=== PATIENT | female | born 1980 | race Asian ===

== ENCOUNTER 2019-03-10 18:14 | Inpatient (IN) | payer MEDICAID, OTHER ==
[2019-03-10] MEDS: SOD CHLORIDE 0.9% 1,000 ML IV (20:47)
[2019-03-10] MEDS: METHYLPREDNISOLONE 125 MG INJ IV (20:47)
[2019-03-10] MEDS: CEFTRIAXONE 1 GM/50 ML (PMX) 50 ML IVPB (20:50)
[2019-03-10 21:01] LABS: ADD MAN DIFF? NO
[2019-03-10] MEDS: IPRATROPIUM (NEB) 0.5 MG/2.5 ML AMP INH (21:01)
[2019-03-10] MEDS: ALBUTEROL 0.083% (NEB) 2.5 MG/3 ML AMP HHN (21:02)
[2019-03-10 21:06] LABS: BASOPHILS % 0.2 % (0.0-2.0); EOSINOPHILS # 0.1 10^3/ul (0.0-0.5); EOSINOPHILS % 0.4 % (0.0-7.0); HEMATOCRIT 37.2 % (37.0-47.0); HEMOGLOBIN 11.3 g/dl (12.0-16.0); LYMPHOCYTES # 3.1 10^3/ul (0.8-2.9); LYMPHOCYTES % 21.7 % (15.0-51.0); MEAN CORPUSCULAR HEMOGLOBIN 24.4 pg (29.0-33.0); MEAN CORPUSCULAR HGB CONC 30.4 g/dl (32.0-37.0); MEAN CORPUSCULAR VOLUME 80.2 fl (82.0-101.0); MEAN PLATELET VOLUME 9.1 fl (7.4-10.4); MONOCYTE # 1.3 10^3/ul (0.3-0.9); NEUTROPHIL # 9.6 10^3/ul (1.6-7.5); NEUTROPHILS % 68.2 % (39.0-77.0); PLATELET COUNT 548 10^3/UL (140-415); RED BLOOD COUNT 4.64 10^6/ul (4.20-5.40); RED CELL DISTRIBUTION WIDTH 16.4 % (11.5-14.5)
[2019-03-10 21:06] LABS: WHITE BLOOD COUNT 14.1 10^3/ul (4.8-10.8)
[2019-03-10 21:22] LABS: ANION GAP 7 (5-13); BLOOD UREA NITROGEN 8 mg/dl (7-20); CALCIUM 9.1 mg/dl (8.4-10.2); CARBON DIOXIDE 31 mmol/L (21-31); CHLORIDE 104 mmol/L (97-110); Estimated GFR > 60 mL/min (>60); GLUCOSE 115 mg/dl (70-220); SODIUM 142 mmol/L (135-144)
[2019-03-10 21:52] LABS: ADD UMIC YES; UR ASCORBIC ACID NEGATIVE (NEGATIVE); UR BILIRUBIN (Dip) NEGATIVE (NEGATIVE); UR BLOOD (Dip) 2+ mg/dL (NEGATIVE); UR CLARITY CLEAR (CLEAR); UR COLOR YELLOW (YELLOW); UR GLUCOSE (Dip) NEGATIVE (NEGATIVE); UR KETONES (Dip) NEGATIVE (NEGATIVE); UR LEUKOCYTE ESTERASE (Dip) NEGATIVE Leu/ul (NEGATIVE); UR NITRITE (Dip) NEGATIVE (NEGATIVE); UR RBC 0 /HPF (0-5); UR SPECIFIC GRAVITY (Dip) 1.008 (1.003-1.030); UR TOTAL PROTEIN (Dip) NEGATIVE (NEGATIVE); UR UROBILINOGEN (Dip) NEGATIVE (NEGATIVE); UR WBC 1 /HPF (0-5)
[2019-03-10] MEDS: PIPER-TAZO 3.375 GM IV (PMX) 100 ML IVPB (22:37)
[2019-03-10] MEDS: VANCOMYCIN 1 GM (PMX) 250 ML IVPB (22:56)
[2019-03-10] MEDS ORDERED: LEVALBUTEROL (NEB) 0.63 MG/3 ML AMP HHN (23:00)
[2019-03-10] MEDS ORDERED: NACL 0.9% 3 ML SYG IV (23:00)
[2019-03-10] MEDS ORDERED: ONDANSETRON 4 MG INJ IV (23:00)
[2019-03-11] MEDS: SOD CHLORIDE 0.9% 1,000 ML IV ×3 (00:29→13:46)
[2019-03-11 01:06] LABS: LACTIC ACID 2.4 mmol/L (0.5-2.0)
[2019-03-11 05:56] LABS: ADD MAN DIFF? NO
[2019-03-11 06:12] LABS: WHITE BLOOD COUNT 13.7 10^3/ul (4.8-10.8)
[2019-03-11 06:12] LABS: BASOPHILS % 0.1 % (0.0-2.0); HEMATOCRIT 34.3 % (37.0-47.0); HEMOGLOBIN 10.2 g/dl (12.0-16.0); LYMPHOCYTES # 1.3 10^3/ul (0.8-2.9); LYMPHOCYTES % 9.7 % (15.0-51.0); MEAN CORPUSCULAR HEMOGLOBIN 23.9 pg (29.0-33.0); MEAN CORPUSCULAR HGB CONC 29.7 g/dl (32.0-37.0); MEAN CORPUSCULAR VOLUME 80.5 fl (82.0-101.0); MEAN PLATELET VOLUME 9.4 fl (7.4-10.4); MONOCYTE # 0.2 10^3/ul (0.3-0.9); MONOCYTES % 1.1 % (0.0-11.0); NEUTROPHIL # 12.1 10^3/ul (1.6-7.5); NEUTROPHILS % 88.6 % (39.0-77.0); PLATELET COUNT 492 10^3/UL (140-415); RED BLOOD COUNT 4.26 10^6/ul (4.20-5.40); RED CELL DISTRIBUTION WIDTH 16.5 % (11.5-14.5)
[2019-03-11 06:32] LABS: ALANINE AMINOTRANSFERASE 19 IU/L (13-69); ALBUMIN 2.9 g/dl (3.3-4.9); ALBUMIN/GLOBULIN RATIO 0.78; ALKALINE PHOSPHATASE 43 IU/L (42-121); ANION GAP 6 (5-13); ASPARTATE AMINO TRANSFERASE 27 IU/L (15-46); BILIRUBIN,INDIRECT 0.2 mg/dl (0-1.1); BILIRUBIN,TOTAL 0.2 mg/dl (0.2-1.3); BLOOD UREA NITROGEN 7 mg/dl (7-20); CARBON DIOXIDE 26 mmol/L (21-31); CHLORIDE 111 mmol/L (97-110); CREATININE 0.53 mg/dl (0.44-1.00); Estimated GFR > 60 mL/min (>60); GLUCOSE 163 mg/dl (70-220); MAGNESIUM 2.3 mg/dl (1.7-2.5); POTASSIUM 4.5 mmol/L (3.5-5.1); SODIUM 143 mmol/L (135-144); TOTAL PROTEIN 6.6 g/dl (6.1-8.1)
[2019-03-11 06:36] LABS: LACTIC ACID 2.1 mmol/L (0.5-2.0)
[2019-03-11] MEDS ORDERED: VANCOMYCIN IV PER PHARMACY XX (07:30)
[2019-03-11] MEDS: METHYLPREDNISOLONE 125 MG INJ IV ×2 (07:51→20:19)
[2019-03-11] MEDS: CEFEPIME 1GM/50 ML (PMX) 50 ML IVPB ×2 (09:01→20:20)
[2019-03-11] MEDS: ENOXAPARIN 40 MG/0.4 ML SYG SC (09:05)
[2019-03-11] MEDS: VANCOMYCIN 1 GM 250 ML IVPB ×2 (09:51→16:43)
[2019-03-11 12:34] LABS: LACTIC ACID 1.4 mmol/L (0.5-2.0)
[2019-03-11] MEDS: GUAIFENESIN LA 600 MG TABSR PO (20:19)
[2019-03-12] MEDS: VANCOMYCIN 1 GM 250 ML IVPB ×3 (01:05→16:57)
[2019-03-12] MEDS: SOD CHLORIDE 0.9% 1,000 ML IV ×2 (05:04→16:57)
[2019-03-12 08:33] LABS: VANCOMYCIN,TROUGH 12.9 ug/ml (10.0-20.0)
[2019-03-12] MEDS: GUAIFENESIN LA 600 MG TABSR PO ×2 (08:34→20:56)
[2019-03-12] MEDS: CEFEPIME 1GM/50 ML (PMX) 50 ML IVPB ×2 (08:35→20:57)
[2019-03-12] MEDS: METHYLPREDNISOLONE 125 MG INJ IV ×2 (08:35→20:56)
[2019-03-12] MEDS: ENOXAPARIN 40 MG/0.4 ML SYG SC (08:41)
[2019-03-12] MEDS: LEVALBUTEROL (NEB) 0.63 MG/3 ML AMP HHN (09:03)
[2019-03-12] MEDS: IPRATROPIUM (NEB) 0.5 MG/2.5 ML AMP NEB (09:03)
[2019-03-12 09:19] LABS: AADO2 Arterial 52.8 mmHg (7.0-24.0); Allen Test ACCEPTAB; Arterial Base Excess -3.7 mmol/L (-3.0-3); Arterial Blood Gas Oxygen Sat 97.5 mmHG (95.0-98.0); Arterial COHb 0.6 % (0.0-3.0); Arterial Fraction of Oxyhgb 96.6 % (93.0-99.0); Arterial HCO3 20.4 mmol/L (22.0-26.0); Arterial MetHb 0.3 % (0.0-1.5); Arterial pCO2 32.7 mmhg (35-45); MODE NCPAP; Site Right Radial
[2019-03-12 11:19] LABS: HEMOGLOBIN A1C 5.8 % (0-5.9)
[2019-03-12 11:22] LABS: CHOLESTEROL 161 mg/dl (100-200)
[2019-03-12 11:22] LABS: HDL CHOLESTEROL 23 mg/dl (34-88); LDL CHOLESTEROL,CALCULATED 99 mg/dl; TRIGLYCERIDES 194 mg/dl (0-149)
[2019-03-13] MEDS: SOD CHLORIDE 0.9% 1,000 ML IV ×3 (00:39→20:39)
[2019-03-13] MEDS: VANCOMYCIN 1 GM 250 ML IVPB ×3 (00:55→17:54)
[2019-03-13 06:00] LABS: ADD MAN DIFF? NO
[2019-03-13 06:06] LABS: WHITE BLOOD COUNT 24.7 10^3/ul (4.8-10.8)
[2019-03-13 06:06] LABS: BASOPHILS % 0.2 % (0.0-2.0); HEMATOCRIT 34.2 % (37.0-47.0); HEMOGLOBIN 10.2 g/dl (12.0-16.0); LYMPHOCYTES # 3.5 10^3/ul (0.8-2.9); MEAN CORPUSCULAR HEMOGLOBIN 24.1 pg (29.0-33.0); MEAN CORPUSCULAR HGB CONC 29.8 g/dl (32.0-37.0); MEAN CORPUSCULAR VOLUME 80.7 fl (82.0-101.0); MEAN PLATELET VOLUME 9.3 fl (7.4-10.4); MONOCYTE # 1.1 10^3/ul (0.3-0.9); MONOCYTES % 4.5 % (0.0-11.0); NEUTROPHIL # 19.8 10^3/ul (1.6-7.5); NEUTROPHILS % 80.2 % (39.0-77.0); PLATELET COUNT 537 10^3/UL (140-415); RED BLOOD COUNT 4.24 10^6/ul (4.20-5.40); RED CELL DISTRIBUTION WIDTH 16.6 % (11.5-14.5)
[2019-03-13 06:23] LABS: ANION GAP 5 (5-13); BLOOD UREA NITROGEN 10 mg/dl (7-20); CALCIUM 8.3 mg/dl (8.4-10.2); CARBON DIOXIDE 24 mmol/L (21-31); CHLORIDE 112 mmol/L (97-110); CREATININE 0.54 mg/dl (0.44-1.00); Estimated GFR > 60 mL/min (>60); GLUCOSE 115 mg/dl (70-220); POTASSIUM 4.3 mmol/L (3.5-5.1); SODIUM 141 mmol/L (135-144)
[2019-03-13 06:28] LABS: MAGNESIUM 2.1 mg/dl (1.7-2.5)
[2019-03-13 06:28] LABS: PHOSPHORUS 4.5 mg/dl (2.5-4.9)
[2019-03-13] MEDS: CEFEPIME 1GM/50 ML (PMX) 50 ML IVPB ×2 (08:48→21:55)
[2019-03-13] MEDS: METHYLPREDNISOLONE 125 MG INJ IV (08:50)
[2019-03-13] MEDS: GUAIFENESIN LA 600 MG TABSR PO (08:51)
[2019-03-13] MEDS: ENOXAPARIN 40 MG/0.4 ML SYG SC (09:03)
[2019-03-13] MEDS: GUAIFENESIN/CODEINE 5ML CUP PO ×2 (10:21→14:25)
[2019-03-13 12:03] LABS: THYROID STIMULATING HORMONE 0.277 MIU/L (0.465-4.680)
[2019-03-13 13:37] LABS: ANA SCREEN NEGATIVE (NEGATIVE)
[2019-03-13 13:50] LABS: PLATELET COUNT 498 10^3/UL (140-415)
[2019-03-13 14:18] LABS: INR 1.07; PT RATIO 1.1
[2019-03-13 14:19] LABS: PARTIAL THROMBOPLASTIN TIME 32.8 Sec (23.0-35.0); THROMBIN TIME 18.6 SEC (13.8-19.1)
[2019-03-13] MEDS: LEVALBUTEROL (NEB) 0.63 MG/3 ML AMP HHN (14:48)
[2019-03-13 15:13] LABS: ALPHA 1 ANTITRYPSIN 177 mg/dL (83-199)
[2019-03-13] MEDS: ACETAMINOPHEN 325 MG TAB PO (16:26)
[2019-03-13] MEDS ORDERED: LIDOCAINE 1% (MDV) 20 ML INJ SC (17:00)
[2019-03-13] MEDS: LIDOCAINE 1% (MDV) 20 ML INJ SC (17:54)
[2019-03-13] MEDS: BENZONATATE 100 MG CAP PO (21:55)
[2019-03-13] MEDS: METHYLPREDNISOLONE 40 MG INJ IV (21:55)
[2019-03-14] MEDS: VANCOMYCIN 1 GM 250 ML IVPB ×3 (00:10→16:17)
[2019-03-14] MEDS: GUAIFENESIN/CODEINE 5ML CUP PO ×3 (02:39→21:30)
[2019-03-14 06:11] LABS: ADD MAN DIFF? NO
[2019-03-14 06:15] LABS: BASOPHILS % 0.1 % (0.0-2.0); EOSINOPHILS % 0.1 % (0.0-7.0); HEMATOCRIT 32.9 % (37.0-47.0); LYMPHOCYTES # 2.3 10^3/ul (0.8-2.9); LYMPHOCYTES % 15.2 % (15.0-51.0); MEAN CORPUSCULAR HGB CONC 30.4 g/dl (32.0-37.0); MEAN CORPUSCULAR VOLUME 79.1 fl (82.0-101.0); MEAN PLATELET VOLUME 9.2 fl (7.4-10.4); MONOCYTE # 0.6 10^3/ul (0.3-0.9); MONOCYTES % 3.9 % (0.0-11.0); NEUTROPHILS % 79.9 % (39.0-77.0); PLATELET COUNT 497 10^3/UL (140-415); RED BLOOD COUNT 4.16 10^6/ul (4.20-5.40); RED CELL DISTRIBUTION WIDTH 16.5 % (11.5-14.5)
[2019-03-14 06:57] LABS: ANION GAP 6 (5-13); BLOOD UREA NITROGEN 8 mg/dl (7-20); CALCIUM 8.1 mg/dl (8.4-10.2); CARBON DIOXIDE 24 mmol/L (21-31); CHLORIDE 108 mmol/L (97-110); CREATININE 0.53 mg/dl (0.44-1.00); Estimated GFR > 60 mL/min (>60); GLUCOSE 123 mg/dl (70-220); POTASSIUM 4.1 mmol/L (3.5-5.1); SODIUM 138 mmol/L (135-144)
[2019-03-14 07:21] LABS: HIV 1&2 ANTIBODY NEGATIVE (NEGATIVE)
[2019-03-14 07:39] LABS: PHOSPHORUS 5.5 mg/dl (2.5-4.9)
[2019-03-14] MEDS: CEFEPIME 1GM/50 ML (PMX) 50 ML IVPB ×2 (08:05→21:30)
[2019-03-14] MEDS: METHYLPREDNISOLONE 40 MG INJ IV ×2 (08:05→21:30)
[2019-03-14] MEDS: BENZONATATE 100 MG CAP PO ×3 (08:05→21:30)
[2019-03-14 12:02] LABS: SMOOTH MUSCLE AB SCREEN NEGATIVE (NEGATIVE)
[2019-03-14 17:36] LABS: MYCOPLASMA PNEUMONIAE AB (IGG) < or = 0.90; NIL 0.01 IU/mL; QUANTIFERON(R)-TB GOLD NEGATIVE (NEGATIVE)
[2019-03-14 19:12] LABS: CYCLIC CITRULLINATED PEP IGG >250 UNITS
[2019-03-15] MEDS: VANCOMYCIN 1 GM 250 ML IVPB ×2 (00:51→11:31)
[2019-03-15] MEDS: GUAIFENESIN/CODEINE 5ML CUP PO (00:52)
[2019-03-15 05:59] LABS: ADD MAN DIFF? NO
[2019-03-15 06:03] LABS: WHITE BLOOD COUNT 19.9 10^3/ul (4.8-10.8)
[2019-03-15 06:03] LABS: BASOPHILS % 0.2 % (0.0-2.0); EOSINOPHILS % 0.1 % (0.0-7.0); HEMATOCRIT 31.8 % (37.0-47.0); HEMOGLOBIN 9.9 g/dl (12.0-16.0); LYMPHOCYTES # 2.5 10^3/ul (0.8-2.9); LYMPHOCYTES % 12.3 % (15.0-51.0); MEAN CORPUSCULAR HEMOGLOBIN 24.7 pg (29.0-33.0); MEAN CORPUSCULAR HGB CONC 31.1 g/dl (32.0-37.0); MEAN CORPUSCULAR VOLUME 79.3 fl (82.0-101.0); MEAN PLATELET VOLUME 9.5 fl (7.4-10.4); MONOCYTE # 0.9 10^3/ul (0.3-0.9); MONOCYTES % 4.3 % (0.0-11.0); NEUTROPHIL # 16.3 10^3/ul (1.6-7.5); PLATELET COUNT 498 10^3/UL (140-415); RED BLOOD COUNT 4.01 10^6/ul (4.20-5.40); RED CELL DISTRIBUTION WIDTH 16.4 % (11.5-14.5)
[2019-03-15 06:19] LABS: ANION GAP 7 (5-13); BLOOD UREA NITROGEN 9 mg/dl (7-20); CALCIUM 8.2 mg/dl (8.4-10.2); CARBON DIOXIDE 24 mmol/L (21-31); CHLORIDE 109 mmol/L (97-110); CREATININE 0.49 mg/dl (0.44-1.00); Estimated GFR > 60 mL/min (>60); GLUCOSE 128 mg/dl (70-220); POTASSIUM 4.4 mmol/L (3.5-5.1); SODIUM 140 mmol/L (135-144)
[2019-03-15 06:26] LABS: PHOSPHORUS 5.4 mg/dl (2.5-4.9)
[2019-03-15 06:26] LABS: MAGNESIUM 2.1 mg/dl (1.7-2.5)
[2019-03-15] MEDS: METHYLPREDNISOLONE 40 MG INJ IV ×2 (08:25→20:30)
[2019-03-15] MEDS: BENZONATATE 100 MG CAP PO ×3 (08:37→20:31)
[2019-03-15] MEDS: CEFEPIME 1GM/50 ML (PMX) 50 ML IVPB ×2 (09:06→20:30)
[2019-03-15 09:17] LABS: VANCOMYCIN,TROUGH 11.4 ug/ml (10.0-20.0)
[2019-03-15] MEDS ORDERED: LIDOCAINE 4% (MPF) 5 ML INJ (09:18)
[2019-03-15] MEDS ORDERED: MIDAZOLAM 1 MG/ML 2 ML INJ (09:23)
[2019-03-15] MEDS ORDERED: ROCURONIUM 50 MG INJ (09:23)
[2019-03-15] MEDS ORDERED: LIDOCAINE 2% (SDV) 5 ML INJ (09:23)
[2019-03-15] MEDS ORDERED: PROPOFOL 200 MG INJ (09:23)
[2019-03-15] MEDS ORDERED: FENTAnyl 50 MCG/ML VIAL (09:23)
[2019-03-15] MEDS ORDERED: ONDANSETRON 4 MG INJ (09:23)
[2019-03-15] MEDS ORDERED: EPHEDrine 25 MG/5 ML SYG (09:23)
[2019-03-15] MEDS ORDERED: FAMOTIDINE 20 MG INJ (09:24)
[2019-03-15] MEDS ORDERED: DIPHENHYDRAMINE 50 MG INJ IV (09:30)
[2019-03-15] MEDS ORDERED: OXYCODONE/ACETAMINOPHEN (5/325) TAB PO ×2 (09:30)
[2019-03-15] MEDS ORDERED: morphine 2 MG INJ IV ×2 (09:30)
[2019-03-15] MEDS ORDERED: FENTAnyl 50 MCG/ML VIAL IV (09:30)
[2019-03-15] MEDS ORDERED: ONDANSETRON 4 MG INJ IV (09:30)
[2019-03-15] MEDS ORDERED: EPHEDrine 25 MG/5 ML SYG IV (09:30)
[2019-03-15] MEDS ORDERED: hydrALAzine 20 MG INJ IV (09:30)
[2019-03-15] MEDS ORDERED: LABETALOL HCL 20MG INJ IV (09:30)
[2019-03-15] MEDS ORDERED: HYDROmorphONE 1 MG/5 ML IV SYRINGE IV ×3 (09:30)
[2019-03-15] MEDS ORDERED: LIDOCAINE 2% (MDV) 20 ML INJ (09:38)
[2019-03-15] MEDS: LIDOCAINE 1% (MDV) 20 ML INJ INJ (10:04)
[2019-03-15] MEDS ORDERED: SUGAMMADEX SODIUM 200 MG/2 ML VIAL IV (10:05)
[2019-03-15] MEDS: FENTAnyl 50 MCG/ML VIAL IV ×4 (10:29→12:54)
[2019-03-15] MEDS: RACEPINEPHRINE 2.25%(NEB) 0.5 ML AMP HHN (10:30)
[2019-03-15 12:13] LABS: IMMUNOGLOBULIN E 181 kU/L (<OR=114)
[2019-03-15] MEDS: VANCOMYCIN 1.25 GM/NS 250 ML 250 ML IVPB (20:30)
[2019-03-15 22:32] LABS: HISTOPLASMA GALACTOMANNAN AG U <0.5
[2019-03-16] MEDS: VANCOMYCIN 1.25 GM/NS 250 ML 250 ML IVPB ×2 (04:14→11:52)
[2019-03-16 05:42] LABS: ADD MAN DIFF? NO
[2019-03-16 05:47] LABS: BASOPHILS % 0.1 % (0.0-2.0); EOSINOPHILS # 0.1 10^3/ul (0.0-0.5); EOSINOPHILS % 0.6 % (0.0-7.0); HEMATOCRIT 34.6 % (37.0-47.0); HEMOGLOBIN 10.2 g/dl (12.0-16.0); LYMPHOCYTES # 3.4 10^3/ul (0.8-2.9); LYMPHOCYTES % 16.6 % (15.0-51.0); MEAN CORPUSCULAR HEMOGLOBIN 23.9 pg (29.0-33.0); MEAN CORPUSCULAR HGB CONC 29.5 g/dl (32.0-37.0); MEAN CORPUSCULAR VOLUME 81.2 fl (82.0-101.0); MEAN PLATELET VOLUME 9.5 fl (7.4-10.4); MONOCYTE # 1.4 10^3/ul (0.3-0.9); MONOCYTES % 6.9 % (0.0-11.0); NEUTROPHIL # 15.4 10^3/ul (1.6-7.5); NEUTROPHILS % 74.7 % (39.0-77.0); PLATELET COUNT 558 10^3/UL (140-415); RED BLOOD COUNT 4.26 10^6/ul (4.20-5.40)
[2019-03-16 05:47] LABS: WHITE BLOOD COUNT 20.6 10^3/ul (4.8-10.8)
[2019-03-16 06:30] LABS: ANION GAP 3 (5-13); BLOOD UREA NITROGEN 15 mg/dl (7-20); CALCIUM 8.6 mg/dl (8.4-10.2); CARBON DIOXIDE 30 mmol/L (21-31); CHLORIDE 104 mmol/L (97-110); CREATININE 0.61 mg/dl (0.44-1.00); Estimated GFR > 60 mL/min (>60); GLUCOSE 107 mg/dl (70-220); POTASSIUM 4.7 mmol/L (3.5-5.1); SODIUM 137 mmol/L (135-144)
[2019-03-16 06:38] LABS: PHOSPHORUS 4.5 mg/dl (2.5-4.9)
[2019-03-16] MEDS: BENZONATATE 100 MG CAP PO ×3 (09:34→20:50)
[2019-03-16] MEDS: CEFEPIME 1GM/50 ML (PMX) 50 ML IVPB ×2 (09:34→20:50)
[2019-03-16] MEDS: METHYLPREDNISOLONE 40 MG INJ IV ×2 (09:34→20:49)
[2019-03-16 15:47] LABS: CRYPTOCOCCAL ANTIGEN - SOURCE SERUM
[2019-03-16 19:35] LABS: PNEUM JIROVECCI SRC SPUTUM; PNEUMOCYSTIS JIROVECCI DFA NOT DETECTED
[2019-03-17 07:18] LABS: ADD MAN DIFF? NO
[2019-03-17 07:24] LABS: BASOPHIL # 0.1 10^3/ul (0.0-0.1); BASOPHILS % 0.3 % (0.0-2.0); EOSINOPHILS % 0.1 % (0.0-7.0); HEMATOCRIT 34.8 % (37.0-47.0); HEMOGLOBIN 10.5 g/dl (12.0-16.0); LYMPHOCYTES # 3.3 10^3/ul (0.8-2.9); LYMPHOCYTES % 15.9 % (15.0-51.0); MEAN CORPUSCULAR HEMOGLOBIN 24.2 pg (29.0-33.0); MEAN CORPUSCULAR HGB CONC 30.2 g/dl (32.0-37.0); MEAN CORPUSCULAR VOLUME 80.2 fl (82.0-101.0); MEAN PLATELET VOLUME 9.3 fl (7.4-10.4); MONOCYTE # 1.5 10^3/ul (0.3-0.9); MONOCYTES % 7.2 % (0.0-11.0); NEUTROPHIL # 15.5 10^3/ul (1.6-7.5); NEUTROPHILS % 74.8 % (39.0-77.0); PLATELET COUNT 577 10^3/UL (140-415); RED BLOOD COUNT 4.34 10^6/ul (4.20-5.40); RED CELL DISTRIBUTION WIDTH 16.6 % (11.5-14.5)
[2019-03-17 07:24] LABS: WHITE BLOOD COUNT 20.7 10^3/ul (4.8-10.8)
[2019-03-17 07:37] LABS: PHOSPHORUS 5.7 mg/dl (2.5-4.9)
[2019-03-17 07:46] LABS: ANION GAP 4 (5-13); BLOOD UREA NITROGEN 10 mg/dl (7-20); CALCIUM 8.7 mg/dl (8.4-10.2); CARBON DIOXIDE 31 mmol/L (21-31); CHLORIDE 104 mmol/L (97-110); CREATININE 0.53 mg/dl (0.44-1.00); Estimated GFR > 60 mL/min (>60); GLUCOSE 111 mg/dl (70-220); POTASSIUM 4.6 mmol/L (3.5-5.1); SODIUM 139 mmol/L (135-144)
[2019-03-17] MEDS: CEFEPIME 1GM/50 ML (PMX) 50 ML IVPB ×2 (09:08→21:25)
[2019-03-17] MEDS: METHYLPREDNISOLONE 40 MG INJ IV ×2 (09:08→21:25)
[2019-03-17] MEDS: BENZONATATE 100 MG CAP PO ×3 (09:08→21:25)
[2019-03-17 17:21] LABS: C-REACTIVE PROTEIN 1.1 mg/dl (0.0-0.9)
[2019-03-17 18:14] LABS: ERYTHROCYTE SEDIMENTATION RATE 27 mm/Hr (0-20)
[2019-03-17 20:44] LABS: PNEUM JIROVECCI SRC BAL; PNEUMOCYSTIS JIROVECCI DFA NOT DETECTED
[2019-03-18] MEDS: LEVALBUTEROL (NEB) 0.63 MG/3 ML AMP HHN ×2 (01:56→15:52)
[2019-03-18 05:52] LABS: ADD MAN DIFF? NO
[2019-03-18 06:02] LABS: WHITE BLOOD COUNT 22.1 10^3/ul (4.8-10.8)
[2019-03-18 06:02] LABS: BASOPHILS % 0.2 % (0.0-2.0); EOSINOPHILS % 0.1 % (0.0-7.0); HEMATOCRIT 37.2 % (37.0-47.0); HEMOGLOBIN 11.1 g/dl (12.0-16.0); LYMPHOCYTES # 3.3 10^3/ul (0.8-2.9); LYMPHOCYTES % 14.9 % (15.0-51.0); MEAN CORPUSCULAR HEMOGLOBIN 23.9 pg (29.0-33.0); MEAN CORPUSCULAR HGB CONC 29.8 g/dl (32.0-37.0); MEAN CORPUSCULAR VOLUME 80.2 fl (82.0-101.0); MEAN PLATELET VOLUME 9.5 fl (7.4-10.4); MONOCYTE # 1.2 10^3/ul (0.3-0.9); MONOCYTES % 5.3 % (0.0-11.0); NEUTROPHIL # 16.8 10^3/ul (1.6-7.5); NEUTROPHILS % 76.1 % (39.0-77.0); PLATELET COUNT 638 10^3/UL (140-415); RED BLOOD COUNT 4.64 10^6/ul (4.20-5.40); RED CELL DISTRIBUTION WIDTH 16.8 % (11.5-14.5)
[2019-03-18 06:22] LABS: MAGNESIUM 2.1 mg/dl (1.7-2.5)
[2019-03-18 06:32] LABS: ANION GAP 7 (5-13); BLOOD UREA NITROGEN 12 mg/dl (7-20); CALCIUM 8.9 mg/dl (8.4-10.2); CARBON DIOXIDE 29 mmol/L (21-31); CHLORIDE 103 mmol/L (97-110); CREATININE 0.53 mg/dl (0.44-1.00); Estimated GFR > 60 mL/min (>60); GLUCOSE 128 mg/dl (70-220); POTASSIUM 4.4 mmol/L (3.5-5.1); SODIUM 139 mmol/L (135-144)
[2019-03-18] MEDS: METHYLPREDNISOLONE 40 MG INJ IV ×2 (08:40→21:30)
[2019-03-18] MEDS: BENZONATATE 100 MG CAP PO ×3 (08:41→21:30)
[2019-03-18] MEDS: GUAIFENESIN/CODEINE 5ML CUP PO ×3 (08:41→23:02)
[2019-03-18] MEDS: CEFEPIME 1GM/50 ML (PMX) 50 ML IVPB ×2 (08:41→21:30)
[2019-03-18] MEDS: IPRATROPIUM (NEB) 0.5 MG/2.5 ML AMP NEB (15:52)
[2019-03-18] MEDS: FAMOTIDINE 20 MG TAB PO (21:30)
[2019-03-19] MEDS: CEFTRIAXONE 1 GM/50 ML (PMX) 50 ML IVPB (01:17)
[2019-03-19 06:05] LABS: ADD MAN DIFF? NO
[2019-03-19 06:11] LABS: WHITE BLOOD COUNT 22.2 10^3/ul (4.8-10.8)
[2019-03-19 06:11] LABS: ABNORMAL IP MESSAGE 1; BASOPHILS % 0.2 % (0.0-2.0); EOSINOPHILS # 0.1 10^3/ul (0.0-0.5); EOSINOPHILS % 0.2 % (0.0-7.0); HEMATOCRIT 36.8 % (37.0-47.0); HEMOGLOBIN 11.1 g/dl (12.0-16.0); LYMPHOCYTES # 3.6 10^3/ul (0.8-2.9); LYMPHOCYTES % 16.1 % (15.0-51.0); MEAN CORPUSCULAR HEMOGLOBIN 24.2 pg (29.0-33.0); MEAN CORPUSCULAR HGB CONC 30.2 g/dl (32.0-37.0); MEAN CORPUSCULAR VOLUME 80.2 fl (82.0-101.0); MEAN PLATELET VOLUME 9.1 fl (7.4-10.4); MONOCYTE # 1.6 10^3/ul (0.3-0.9); MONOCYTES % 7.2 % (0.0-11.0); NEUTROPHIL # 16.1 10^3/ul (1.6-7.5); NEUTROPHILS % 72.5 % (39.0-77.0); PLATELET COUNT 622 10^3/UL (140-415); RED BLOOD COUNT 4.59 10^6/ul (4.20-5.40); RED CELL DISTRIBUTION WIDTH 17.1 % (11.5-14.5)
[2019-03-19 06:16] LABS: POSITIVE DIFF @See below
[2019-03-19 06:40] LABS: MAGNESIUM 2.1 mg/dl (1.7-2.5)
[2019-03-19 06:40] LABS: PHOSPHORUS 6.2 mg/dl (2.5-4.9)
[2019-03-19 06:42] LABS: ANION GAP 6 (5-13); BLOOD UREA NITROGEN 12 mg/dl (7-20); CALCIUM 9.2 mg/dl (8.4-10.2); CARBON DIOXIDE 29 mmol/L (21-31); CHLORIDE 103 mmol/L (97-110); CREATININE 0.52 mg/dl (0.44-1.00); Estimated GFR > 60 mL/min (>60); GLUCOSE 109 mg/dl (70-220); POTASSIUM 5.1 mmol/L (3.5-5.1); SODIUM 138 mmol/L (135-144)
[2019-03-19] MEDS: BENZONATATE 100 MG CAP PO ×3 (08:38→20:40)
[2019-03-19] MEDS: FAMOTIDINE 20 MG TAB PO ×2 (08:38→20:40)
[2019-03-19] MEDS: METHYLPREDNISOLONE 40 MG INJ IV ×2 (08:38→20:40)
[2019-03-19] MEDS: IPRATROPIUM (NEB) 0.5 MG/2.5 ML AMP NEB (09:28)
[2019-03-19] MEDS: LEVALBUTEROL (NEB) 0.63 MG/3 ML AMP HHN (09:28)
[2019-03-19] MEDS: GUAIFENESIN/CODEINE 5ML CUP PO (22:56)
[2019-03-20] MEDS: CEFTRIAXONE 1 GM/50 ML (PMX) 50 ML IVPB (00:21)
[2019-03-20 05:47] LABS: ADD MAN DIFF? NO
[2019-03-20 06:05] LABS: WHITE BLOOD COUNT 23.3 10^3/ul (4.8-10.8)
[2019-03-20 06:05] LABS: BASOPHIL # 0.1 10^3/ul (0.0-0.1); BASOPHILS % 0.2 % (0.0-2.0); EOSINOPHILS % 0.1 % (0.0-7.0); HEMATOCRIT 36.5 % (37.0-47.0); HEMOGLOBIN 11.1 g/dl (12.0-16.0); LYMPHOCYTES # 3.3 10^3/ul (0.8-2.9); MEAN CORPUSCULAR HEMOGLOBIN 24.2 pg (29.0-33.0); MEAN CORPUSCULAR HGB CONC 30.4 g/dl (32.0-37.0); MEAN CORPUSCULAR VOLUME 79.5 fl (82.0-101.0); MEAN PLATELET VOLUME 9.2 fl (7.4-10.4); MONOCYTE # 1.3 10^3/ul (0.3-0.9); MONOCYTES % 5.6 % (0.0-11.0); NEUTROPHIL # 17.8 10^3/ul (1.6-7.5); NEUTROPHILS % 76.7 % (39.0-77.0); PLATELET COUNT 670 10^3/UL (140-415); RED BLOOD COUNT 4.59 10^6/ul (4.20-5.40)
[2019-03-20 06:39] LABS: ANION GAP 6 (5-13); BLOOD UREA NITROGEN 13 mg/dl (7-20); CALCIUM 8.7 mg/dl (8.4-10.2); CARBON DIOXIDE 29 mmol/L (21-31); CHLORIDE 103 mmol/L (97-110); CREATININE 0.51 mg/dl (0.44-1.00); Estimated GFR > 60 mL/min (>60); GLUCOSE 120 mg/dl (70-220); POTASSIUM 4.7 mmol/L (3.5-5.1); SODIUM 138 mmol/L (135-144)
[2019-03-20] MEDS: ENOXAPARIN 40 MG/0.4 ML SYG SC (09:00)
[2019-03-20] MEDS: FAMOTIDINE 20 MG TAB PO ×2 (09:53→21:15)
[2019-03-20] MEDS: BENZONATATE 100 MG CAP PO ×3 (09:53→21:15)
[2019-03-20] MEDS: LEVALBUTEROL (NEB) 0.63 MG/3 ML AMP HHN (18:19)
[2019-03-20] MEDS: IPRATROPIUM (NEB) 0.5 MG/2.5 ML AMP NEB (18:19)
[2019-03-21] MEDS: CEFTRIAXONE 1 GM/50 ML (PMX) 50 ML IVPB (00:23)
[2019-03-21] MEDS: BENZONATATE 100 MG CAP PO ×3 (09:02→20:19)
[2019-03-21] MEDS: predniSONE 20 MG TAB PO (09:02)
[2019-03-21] MEDS: FAMOTIDINE 20 MG TAB PO ×2 (09:02→20:19)
[2019-03-21] MEDS: GUAIFENESIN/CODEINE 5ML CUP PO ×2 (09:02→20:19)
[2019-03-21] MEDS: ENOXAPARIN 40 MG/0.4 ML SYG SC (09:02)
[2019-03-21] MEDS: LEVALBUTEROL (NEB) 0.63 MG/3 ML AMP HHN ×2 (17:15→20:48)
[2019-03-21] MEDS: IPRATROPIUM (NEB) 0.5 MG/2.5 ML AMP NEB (20:48)
[2019-03-22] MEDS: CEFTRIAXONE 1 GM/50 ML (PMX) 50 ML IVPB (00:58)
[2019-03-22] MEDS: FAMOTIDINE 20 MG TAB PO ×2 (08:33→22:10)
[2019-03-22] MEDS: GUAIFENESIN/CODEINE 5ML CUP PO ×2 (08:33→22:10)
[2019-03-22] MEDS: BENZONATATE 100 MG CAP PO ×3 (08:33→22:10)
[2019-03-22] MEDS: predniSONE 20 MG TAB PO (08:33)
[2019-03-22] MEDS: ENOXAPARIN 40 MG/0.4 ML SYG SC (08:34)
[2019-03-23] MEDS: CEFTRIAXONE 1 GM/50 ML (PMX) 50 ML IVPB (01:40)
[2019-03-23] MEDS: LEVALBUTEROL (NEB) 0.63 MG/3 ML AMP HHN ×2 (02:07→22:13)
[2019-03-23] MEDS: IPRATROPIUM (NEB) 0.5 MG/2.5 ML AMP NEB ×2 (02:07→22:13)
[2019-03-23] MEDS: predniSONE 20 MG TAB PO (08:20)
[2019-03-23] MEDS: BENZONATATE 100 MG CAP PO ×3 (08:20→22:02)
[2019-03-23] MEDS: FAMOTIDINE 20 MG TAB PO ×2 (08:20→22:03)
[2019-03-23] MEDS: ENOXAPARIN 40 MG/0.4 ML SYG SC (08:21)
[2019-03-23 11:11] LABS: PROCALCITONIN 0.05 ng/mL (0.00-0.10)
[2019-03-23] MEDS: TRIMETHOPRIM/SULFAMETHOX (DS) TAB PO (13:12)
[2019-03-24] MEDS: CEFTRIAXONE 1 GM/50 ML (PMX) 50 ML IVPB (01:10)
[2019-03-24] MEDS: ENOXAPARIN 40 MG/0.4 ML SYG SC (08:25)
[2019-03-24] MEDS: predniSONE 20 MG TAB PO (08:25)
[2019-03-24] MEDS: FAMOTIDINE 20 MG TAB PO ×2 (08:25→20:33)
[2019-03-24] MEDS: BENZONATATE 100 MG CAP PO ×3 (08:25→20:33)
[2019-03-24 10:08] LABS: ADD MAN DIFF? NO
[2019-03-24 10:10] LABS: WHITE BLOOD COUNT 22.5 10^3/ul (4.8-10.8)
[2019-03-24 10:10] LABS: BASOPHIL # 0.1 10^3/ul (0.0-0.1); BASOPHILS % 0.4 % (0.0-2.0); EOSINOPHILS # 0.5 10^3/ul (0.0-0.5); EOSINOPHILS % 2.4 % (0.0-7.0); HEMATOCRIT 34.2 % (37.0-47.0); HEMOGLOBIN 10.4 g/dl (12.0-16.0); LYMPHOCYTES # 3.1 10^3/ul (0.8-2.9); LYMPHOCYTES % 13.5 % (15.0-51.0); MEAN CORPUSCULAR HEMOGLOBIN 24.5 pg (29.0-33.0); MEAN CORPUSCULAR HGB CONC 30.4 g/dl (32.0-37.0); MEAN CORPUSCULAR VOLUME 80.7 fl (82.0-101.0); MEAN PLATELET VOLUME 8.7 fl (7.4-10.4); MONOCYTE # 1.3 10^3/ul (0.3-0.9); MONOCYTES % 5.9 % (0.0-11.0); NEUTROPHIL # 17.1 10^3/ul (1.6-7.5); PLATELET COUNT 506 10^3/UL (140-415); RED BLOOD COUNT 4.24 10^6/ul (4.20-5.40); RED CELL DISTRIBUTION WIDTH 17.4 % (11.5-14.5)
[2019-03-24 10:32] LABS: ANION GAP 7 (5-13); BLOOD UREA NITROGEN 8 mg/dl (7-20); CALCIUM 8.6 mg/dl (8.4-10.2); CARBON DIOXIDE 25 mmol/L (21-31); CHLORIDE 105 mmol/L (97-110); CREATININE 0.56 mg/dl (0.44-1.00); Estimated GFR > 60 mL/min (>60); GLUCOSE 143 mg/dl (70-220); POTASSIUM 3.3 mmol/L (3.5-5.1); SODIUM 137 mmol/L (135-144)
[2019-03-24] MEDS: GUAIFENESIN/CODEINE 5ML CUP PO (21:44)
[2019-03-25 05:55] LABS: ANION GAP 6 (5-13); BLOOD UREA NITROGEN 7 mg/dl (7-20); CALCIUM 8.6 mg/dl (8.4-10.2); CARBON DIOXIDE 27 mmol/L (21-31); CHLORIDE 104 mmol/L (97-110); Estimated GFR > 60 mL/min (>60); GLUCOSE 79 mg/dl (70-220); POTASSIUM 3.9 mmol/L (3.5-5.1); SODIUM 137 mmol/L (135-144)
[2019-03-25] MEDS: predniSONE 20 MG TAB PO (08:47)
[2019-03-25] MEDS: BENZONATATE 100 MG CAP PO ×3 (08:47→21:12)
[2019-03-25] MEDS: FAMOTIDINE 20 MG TAB PO ×2 (08:47→21:12)
[2019-03-25] MEDS: ENOXAPARIN 40 MG/0.4 ML SYG SC (08:51)
[2019-03-25] MEDS: GUAIFENESIN/CODEINE 5ML CUP PO (22:45)
[2019-03-26] MEDS: FAMOTIDINE 20 MG TAB PO ×2 (08:16→20:14)
[2019-03-26] MEDS: predniSONE 20 MG TAB PO (08:16)
[2019-03-26] MEDS: ENOXAPARIN 40 MG/0.4 ML SYG SC (08:16)
[2019-03-26] MEDS: BENZONATATE 100 MG CAP PO ×3 (08:16→20:15)
[2019-03-26] MEDS: TRIMETHOPRIM/SULFAMETHOX (DS) TAB PO (08:16)
[2019-03-27] MEDS: GUAIFENESIN/CODEINE 5ML CUP PO ×2 (08:38→19:45)
[2019-03-27] MEDS: predniSONE 20 MG TAB PO (08:38)
[2019-03-27] MEDS: FAMOTIDINE 20 MG TAB PO ×2 (08:38→20:42)
[2019-03-27] MEDS: BENZONATATE 100 MG CAP PO ×3 (08:38→20:42)
[2019-03-27] MEDS: ENOXAPARIN 40 MG/0.4 ML SYG SC (08:39)
[2019-03-27] MEDS: ACETAMINOPHEN 325 MG TAB PO (19:45)
[2019-03-27] MEDS: IPRATROPIUM (NEB) 0.5 MG/2.5 ML AMP NEB (22:31)
[2019-03-27] MEDS: LEVALBUTEROL (NEB) 0.63 MG/3 ML AMP HHN (22:31)
[2019-03-28 05:17] LABS: ADD MAN DIFF? NO
[2019-03-28 05:21] LABS: WHITE BLOOD COUNT 15.9 10^3/ul (4.8-10.8)
[2019-03-28 05:21] LABS: ABNORMAL IP MESSAGE 1; BASOPHIL # 0.1 10^3/ul (0.0-0.1); BASOPHILS % 0.6 % (0.0-2.0); EOSINOPHILS # 0.3 10^3/ul (0.0-0.5); EOSINOPHILS % 1.7 % (0.0-7.0); HEMATOCRIT 34.8 % (37.0-47.0); HEMOGLOBIN 10.4 g/dl (12.0-16.0); LYMPHOCYTES # 5.3 10^3/ul (0.8-2.9); LYMPHOCYTES % 33.1 % (15.0-51.0); MEAN CORPUSCULAR HEMOGLOBIN 24.1 pg (29.0-33.0); MEAN CORPUSCULAR HGB CONC 29.9 g/dl (32.0-37.0); MEAN CORPUSCULAR VOLUME 80.7 fl (82.0-101.0); MEAN PLATELET VOLUME 8.8 fl (7.4-10.4); MONOCYTE # 1.3 10^3/ul (0.3-0.9); MONOCYTES % 8.4 % (0.0-11.0); NEUTROPHIL # 8.8 10^3/ul (1.6-7.5); NEUTROPHILS % 54.9 % (39.0-77.0); PLATELET COUNT 462 10^3/UL (140-415); RED BLOOD COUNT 4.31 10^6/ul (4.20-5.40); RED CELL DISTRIBUTION WIDTH 17.8 % (11.5-14.5)
[2019-03-28 05:37] LABS: POSITIVE DIFF @See below
[2019-03-28 05:46] LABS: PHOSPHORUS 6.1 mg/dl (2.5-4.9)
[2019-03-28 05:46] LABS: ANION GAP 6 (5-13); BLOOD UREA NITROGEN 9 mg/dl (7-20); CALCIUM 8.6 mg/dl (8.4-10.2); CARBON DIOXIDE 27 mmol/L (21-31); CHLORIDE 105 mmol/L (97-110); CREATININE 0.58 mg/dl (0.44-1.00); Estimated GFR > 60 mL/min (>60); GLUCOSE 81 mg/dl (70-220); MAGNESIUM 2.1 mg/dl (1.7-2.5); POTASSIUM 4.1 mmol/L (3.5-5.1); SODIUM 138 mmol/L (135-144)
[2019-03-28] MEDS: predniSONE 20 MG TAB PO (08:56)
[2019-03-28] MEDS: ENOXAPARIN 40 MG/0.4 ML SYG SC (08:56)
[2019-03-28] MEDS: FAMOTIDINE 20 MG TAB PO (08:56)
[2019-03-28] MEDS: BENZONATATE 100 MG CAP PO ×2 (08:57→12:32)
[2019-03-28] MEDS: TRIMETHOPRIM/SULFAMETHOX (DS) TAB PO (08:59)
[2019-03-28] MEDS: GUAIFENESIN/CODEINE 5ML CUP PO (16:46)
== END 2019-03-28 18:42 | disposition home health service (06) | DRG 872 ==
LOC: 6WM 23:14 → PP2 03-16 15:39 → FTE 18:14 → 6WM 22:11
PROC: 0BD68ZX Extraction of Right Lower Lobe Bronchus, Via Natural or Artificial Opening Endoscopic, Diagnostic (ICD-10-PCS; principal; 2019-03-15 09:00)
PROC: 0B9F8ZX Drainage of Right Lower Lung Lobe, Via Natural or Artificial Opening Endoscopic, Diagnostic (ICD-10-PCS; 2019-03-15 09:00)
PROC: 0BDF8ZX Extraction of Right Lower Lung Lobe, Via Natural or Artificial Opening Endoscopic, Diagnostic (ICD-10-PCS; 2019-03-15 09:00)
DX: A41.9 Sepsis, unspecified organism (principal); J84.116 Cryptogenic organizing pneumonia; J45.901 Unspecified asthma with (acute) exacerbation; E87.2 Acidosis; J84.10 Pulmonary fibrosis, unspecified; E66.9 Obesity, unspecified; R73.03 Prediabetes; R09.02 Hypoxemia; Z68.30 Body mass index [BMI] 30.0-30.9, adult
CPT/HCPCS: 36415; 36600; 71045; 71250; 80048; 80053; 80061; 80202; 81001; 81025; 82103; 82785; 82803; 83036; 83605; 83735; 84100; 84145; 84439; 84443; 84703; 85025; 85049; 85610; 85651; 85670; 85730; 86038; 86140; 86200; 86235; 86255; 86480; 86606; 86635; 86641; 86698; 86703; 86738; 87015; 87040-91; 87070; 87102; 87116; 87252; 87275; 87276; 87279; 87280; 87281; 87385; 87449; 87536; 87556; 88104; 88305; 88312; 88313; 93306; 94640; 94664; 96365; 96375; 97161; 99285-25